=== PATIENT | female | born 1960 | race American Indian/Alaskan Native ===

== ENCOUNTER 2024-09-04 07:20 | Day surgery (SDC) | payer OTHER, SELFPAY ==
[2024-09-03 12:37] VITALS: BMI 31.0
[2024-09-04] VITALS (10 sets, daily range): BP systolic 104–147; BP diastolic 56–73; PULSE 54–61; RESP 12–18; TEMP 36.8–36.9; O2SAT 95–100; BMI 33.6
[2024-09-04] MEDS: SODIUM CHLORIDE 0.9% 500 ML 500 ML 20 ML IV (09:47)
[2024-09-04] MEDS: MIDAZOLAM INJ 1 MG/ML VIAL 2 ML (ASD USE ONLY) 2 MG IV (09:48)
[2024-09-04] MEDS: DiphenhydrAMINE INJ 50 MG/ML VIAL 25 MG IV (09:49)
[2024-09-04] MEDS: fentaNYL CIT INJ 50 mCg/ML AMP 2ML (ASD USE ONLY) IV (09:49)
[2024-09-04 10:11] LABS: Misc Send Out* See Sep Rpt
== END 2024-09-04 10:36 | disposition home or self-care (01) ==
PROVIDERS: PCP Nurse Practitioner Family; Referring Provider Specialist; Visit Provider Specialist
PROC: (CPT 43239; principal; 2024-09-04 08:30)
DX: K20.90 Esophagitis, unspecified without bleeding (principal); K29.70 Gastritis, unspecified, without bleeding; K29.50 Unspecified chronic gastritis without bleeding; B96.81 Helicobacter pylori [H. pylori] as the cause of diseases classified elsewhere; K31.89 Other diseases of stomach and duodenum
CPT/HCPCS: 43239; 87081; 87181; 87205; A4649; J1200; J2250; J3010; J7040

== ENCOUNTER → 2024-10-08 | Outpatient (CLI) | payer OTHER, SELFPAY ==
--- NOTE | 2024-10-08 10:53 | XR_ITS ---
Examination: Pelvic ultrasound, transabdominal, complete Technique: Transabdominal ultrasound of the pelvis performed using grayscale imaging Date and time of exam: October 08, 2024 1143 hours INDICATIONS: Umbilical pain beginning 3 days ago FINDINGS: Uterus 4.3 cm endometrial stripe 0.6 cm No uterine mass Right ovary 2.4 cm arterial flow Left ovary obscured by bowel gas IMPRESSION: Limited study Atrophic uterus No uterine mass
--- NOTE | 2024-10-08 10:53 | XR_ITS ---
Examination: Abdomen sonogram, complete Date and time of exam: October 08, 2024 1133 hours INDICATIONS: Umbilical pain beginning 3 days ago. Technique: Multiple real-time grayscale transabdominal sonographic images of the abdomen have been obtained. Findings: Absent gallbladder Common bile duct 0.8 cm no stones Pancreatic head 3.4 cm Aorta not enlarged Liver 17.6 cm fatty infiltration Normal hepatopedal portal venous flow Patent IVC Right kidney 11.7 cm cortex 1.8 cm Lower pole 32 mm cyst Left kidney 12.0 cm cortex 1.8 cm Moderate bilateral renal parenchymal scar formation Spleen 10.8 cm IMPRESSION: Enlarged common bile duct 0.8 cm Prominent pancreatic head 3.4 cm, consider MRCP follow-up Moderate bilateral renal parenchymal scar formation
== END | disposition home or self-care (01) ==
PROVIDERS: PCP Nurse Practitioner Family; Referring Provider Nurse Practitioner Family; Visit Provider Nurse Practitioner Family
DX: N28.89 Other specified disorders of kidney and ureter (principal); K83.9 Disease of biliary tract, unspecified; N85.8 Other specified noninflammatory disorders of uterus; Z98.890 Other specified postprocedural states
CPT/HCPCS: 76700; 76856

== ENCOUNTER → 2024-11-20 | Outpatient (CLI) | payer OTHER, SELFPAY ==
--- NOTE | 2024-11-20 08:10 | XR_ITS ---
MRI abdomen, without contrast. MRCP Date and time of exam: November 12, 2024 at 0837 hours INDICATIONS: Diagnosis of the specified diseases of the biliary tract, abdominal pain with nausea one year Technique: Multiple axial and coronal images of the abdomen have been obtained with the Siemens 1.5T MRI scanner. Images obtained included T1 weighted transverse images, T2-weighted transverse images, T2-weighted transverse images fat-suppressed, T2 weighted haste fat suppressed transverse images, T1 weighted images, in and out of phase images, T2-weighted coronal images, breath hold, T2 weighted haze coronal images as well as T2 weighted coronal thick slab images, MRCP. Findings: Hepatomegaly 21 cm no focal liver lesions Absent gallbladder Common bile duct 10 mm, No common bile duct stones Pancreatic duct is not dilated No pancreatic mass or peripancreatic edema Negative for splenomegaly Aorta normal size Bilateral benign renal cysts, the largest in the lower pole right kidney 34 mm IMPRESSION: Significant hepatomegaly, no focal liver lesions Absent gallbladder No common hepatic or common bile duct stones Negative for pancreatitis
== END | disposition home or self-care (01) ==
PROVIDERS: PCP Nurse Practitioner Family; Referring Provider Nurse Practitioner Family; Visit Provider Nurse Practitioner Family
DX: R16.0 Hepatomegaly, not elsewhere classified (principal); Z90.49 Acquired absence of other specified parts of digestive tract
CPT/HCPCS: S8037; 74181

== ENCOUNTER → 2025-01-01 | Outpatient (CLI) | payer OTHER, SELFPAY ==
--- NOTE | 2025-01-01 14:05 | XR_ITS ---
Examination: Duplex scan of the lower extremity, unilateral right complete Date and time of exam: January 01, 2025 1431 hours INDICATIONS: Right leg filling and pain beginning one month ago Technique: Duplex scan of the extremity veins using B-mode/grayscale imaging and Doppler spectral analysis and color flow Attention is directed to internal echogenicity, compression and augmentation involving these veins, color flow assessment, spectral analysis Findings: Major deep venous structures in the extremity demonstrate normal course and caliber. There is no evidence of deep vein thrombosis. Normal color flow and spectral analysis Impression: Negative for DVT..
== END | disposition home or self-care (01) ==
LOC: SDIM 13:58
PROVIDERS: PCP Nurse Practitioner Family; Referring Provider Nurse Practitioner Family; Visit Provider Nurse Practitioner Family
DX: M79.89 Other specified soft tissue disorders (principal)
CPT/HCPCS: 93971

== ENCOUNTER → 2025-03-10 | Outpatient (CLI) | payer MEDICAID, OTHER, SELFPAY ==
--- NOTE | 2025-03-10 09:30 | XR_ITS ---
Examination: Screening digital mammography, bilateral Computer aided detection 3-D breast Tomosynthesis, bilateral Date and time of exam: March 10, 2025, 0944 hours, compared to mammograms dating to 03/21/2014 Indication: Screening Technique: Nonmagnified MLO, CC views of the breasts to been obtained, reconstructed from 3-D Tomosynthesis images. R2 computer aided detection program utilized for evaluation of suspicious masses and/or abnormal calcifications. 3-D Tomosynthesis images obtained. Findings: The breasts are heterogeneously dense, which may obscure small masses Implants appear intact 9 mm partially circumscribed nodule retroareolar region right breast Impression: BI-RADS Category 0: Incomplete: Need additional imaging evaluation Recommend follow-up spot tomographic views of 9 mm partially circumscribed nodule retroareolar region right breast as well as right breast sonography to complete the workup
== END | disposition home or self-care (01) ==
LOC: CDIM 09:29
PROVIDERS: PCP Nurse Practitioner Family; Referring Provider Nurse Practitioner Family; Visit Provider Nurse Practitioner Family
DX: Z12.31 Encounter for screening mammogram for malignant neoplasm of breast (principal); R92.8 Other abnormal and inconclusive findings on diagnostic imaging of breast; N63.41 Unspecified lump in right breast, subareolar
CPT/HCPCS: 77063; 77067

== ENCOUNTER → 2025-06-13 | Outpatient (CLI) | payer MEDICAID, OTHER, SELFPAY ==
--- NOTE | 2025-06-13 07:14 | XR_ITS ---
Examination: Breast ultrasound complete, bilateral Date and time of exam: June 13, 2025, 0720 hours INDICATIONS: Mammogram 03/10/2025 9 mm nodule retroareolar region right breast, family history of breast cancer Technique: Real-time grayscale ultrasonographic imaging bilateral breasts, including all 4 quadrants as well as nipple retroareolar and axillary regions. Findings: Sonographic images right breast 9:00 cyst 3 x 3 mm No solid nodules Sonographic images left breast No cystic or solid mass Bilateral intact breast implants IMPRESSION: BI-RADS Category 2: Benign findings
--- NOTE | 2025-06-13 07:21 | XR_ITS ---
Examination: Diagnostic digital mammography, unilateral, right Computer aided detection 3-D breast Tomosynthesis, unilateral Date and time of exam: Indications: Mammogram 03/10/2025 9 mm partially circumscribed nodule retroareolar region right breast June 13, 2025, 0847 hours : Nonmagnified MLO, CC views of the right breast have been obtained, reconstructed from 3-D Tomosynthesis images. R2 computer aided detection program utilized for evaluation of suspicious masses and/or abnormal calcifications. 3-D Tomosynthesis images obtained. Findings: The breast is heterogeneously dense, which may obscure small masses Retroareolar nodule 9 mm again noted Impression: BI-RADS category 3: Probably benign findings Recommend 1 additional 6-month right mammogram follow-up
== END | disposition home or self-care (01) ==
PROVIDERS: PCP Nurse Practitioner Family; Referring Provider Nurse Practitioner Family; Visit Provider Nurse Practitioner Family
DX: R92.331 Mammographic heterogeneous density, right breast (principal); Z80.3 Family history of malignant neoplasm of breast
CPT/HCPCS: 76641; 77061; 77065; G0279